=== PATIENT | male | born 1960 | race Caucasian/White ===

== ENCOUNTER 2016-12-03 07:48 | Day surgery (SDC) | payer BC ==
[~2016-12-03] VITALS: Ht 170.2 cm; Wt 88.9 kg
[~2016-12-03 07:48] MED LIST: LISI10TA7 PO; MELO-273 PO; MULT-933 PO; PROPOFOL 500mg 50 ML IV ONE
--- OUTSIDE RECORDS SUMMARY | 2016-12-03 07:52 | XMS REPORT | Continuity of Care Document ---
Author Author [facility] Organization [facility] Address Unknown Phone Unavailable Support Name Relationship Address Phone CHARLEE RODRIGUEZ MD Caregiver [address] [place] [address] DAY TSANG MD Caregiver [address] [place] [address] [place], [place] [phone] PIA HERNANDEZ Next Of Kin [address] [place] [address] Insurance Providers Payer Name Policy Number Subscriber Name Relationship [employer] [id number] Raheem Hernandez 16 Self Problems Medical Problems Problem Onset Date Status Laceration of lip without complication Unknown Active Laceration of lip without complication Unknown Active Medications Medication Dose Route Sig Days/Qty Instructions Order Date Discontinued Date Status [No Daily Medications] 04/14/14 Active Social History Social History Problem Response Recorded Date/Time Smoking Status Unknown if ever smoked 04/14/2014 10:53am Chewing Tobacco Status No 08/02/2013 6:05pm Hx Substance Use No 04/14/2014 10:53am Hx Alcohol Use No 04/14/2014 10:53am Has the pt used tobacco in the last 12 months No 08/02/2013 6:05pm Query Response Start Date Stop Date Smoking Status Never smoker Hospital Discharge Instructions No hospital discharge instructions. Plan of Care No plan of care. Functional Status Query Response Date Recorded Physical Hygiene Self April 14, 2014 10:53am Disabilities Visual April 14, 2014 10:53am Devices Used Glasses April 14, 2014 10:53am Dressing Self April 14, 2014 10:53am Ambulation Self April 14, 2014 10:53am Diet Self April 14, 2014 10:53am Mental Status Alert Oriented April 14, 2014 10:53am Disabilities Visual April 14, 2014 10:53am Devices Used Glasses April 14, 2014 10:53am Physical Hygiene Self April 14, 2014 10:53am Dressing Self April 14, 2014 10:53am Ambulation Self April 14, 2014 10:53am Diet Self April 14, 2014 10:53am Allergies, Adverse Reactions, Alerts Allergen Type Severity Reaction Status Last Updated Erythromycin base Adverse Reaction Unknown UPSET STOMACH Active 04/14/14 Immunizations Name Given Type Hx Influenza Vaccination Y FALL 2012 Historical Hx Pneumococcal Vaccination No Historical Hx Tetanus, Diptheria, Pertussis Y WITHIN LAST COUPLE OF MONTHS Historical Hx Influenza Vaccination Y FALL 2012 Historical Hx Tetanus, Diptheria, Pertussis Y WITHIN LAST COUPLE OF MONTHS Historical Vital Signs Acute Vital Signs Vital Response Date/Time Temperature (Fahrenheit) 96.6 deg F (96.8 - 99.1) Temperature (Calculated Celsius) 35.13135 degrees C (36.0 - 37.3) Pulse Rate (adult) 75 bpm (60 - 100) Respiratory Rate 16 breaths/min (10 - 20) O2 Sat by Pulse Oximetry 97 % (90 - 100) Blood Pressure 155/78 mm Hg Height 5 ft 7 in Weight 186 lb Body Mass Index 29.0 kg/m^2 Results No known relevant diagnostic tests, laboratory data and/or discharge summary. Procedures No known history of procedures. Encounters Encounter Location Date/Time Departed Emergency Room [facility] 04/14/14 10:35am Recent Diagnosis
[2016-12-03 07:58] VITALS: Ht 170.2 cm; Wt 88.9 kg
[2016-12-03 07:59] VITALS: BP 156/77; PULSE 63; RESP 15; TEMP 98.9; O2SAT 94
--- NOTE | 2016-12-03 08:42 | ANESPREOP ---
Anesthesia Record Date and Time DATE: 12/03/16 TIME: 08:39 Proposed Surgical Procedure EGD WITH DIL NPO since: 0 Allergies: Coded Allergies: NKDA (Verified Allergy, Unknown, 12/03/16) Ht/Wt/BMI Height: 5 ' 7.00 " Weight: 88.900 kg BMI: 30.7 kg/m2 Vital Signs Date Time Temp Pulse Resp B/P Pulse Ox O2 Delivery O2 Flow Rate FiO2 12/03/16 07:59 98.9 63 15 156/77 94 Room Air Medications Inpatient Medications Current Medications Medications (Trade) Dose Ordered Sig/Trisha Start Time Stop Time Status Last Admin Dose Admin Lactated Ringer's (Lactated Ringers) 1,000 ml @ 30 mls/hr Q24H 12/03/16 13:29 12/03/16 08:16 30 MLS/HR Lisinopril (Lisinopril) 10 Mg Tablet, 10 MG PO DAILY Last Taken: on 12/02/16 0530 Meloxicam (Meloxicam) 7.5 Mg Tablet, 1 TAB PO DAILY, (Reported) Last Taken: on 11/29/16 Multivitamin (Multi-Day Vitamins) 1 Each Tablet, 1 TAB PO DAILY, (Reported) Last Taken: on 12/02/16 0530 Currently on Beta Giacomo: No Medical/Surgical History Anesthesia PMH: Reports: *Hypertension, Hyperlipidemia, Obesity, Other ( Schatzki's righ), Sleep Apnea (DOES NOT WEAR A CPAP/SAYS ONLY WHEN LYING ON BACK ) Smoking Status: Never smoker Use Chewing Tobacco?: No Second Hand Exposure: No Substance Use Type: does not use Alcohol Intake: 0-2 drinks per day Past Surgical History Orthopedic Surgeries: Yes - R WRIST,L KNEE, L WRIST Abdominal Surgeries: Yes - SCHATZKI'S RING,INGUINAL HERNIA Genitourinary Surgeries: No Cardiac Surgeries: No Endocrine Surgeries: No Reproductive Surgeries: Yes - VASECTOMY Neurological Surgeries: No Ear Surgeries: No Nose Surgeries: No Throat Surgeries: No Other Surgeries: Yes - COLONOSCOPY ,EGD Anesthesia Adverse Reactions: FOUND none Family Hx of Anesthesia Advers: none Hx of Motion Sickness: No Physical Exam Respiratory: Bilat breath sounds equal, Lungs clear Cardiovascular: FOUND Regular rate, rhythm Airway Assessment Mallampati Score: III TMD: 2 Fingerbreadths Neck Extension: Fair Teeth: Chipped Teeth/Crowns (multiple front teeth, and missing teeth), Poor Dentation Overall Assessment: No Airway Concerns ASA: 3 Plan Anesthesia Plan: TIVA, GETA Discussion Discussed risks/options/alternatives of anesthesia and questions answered. Patient consents. Nursing pain assessment noted. Attestation Statement Prior to the delivery of any anesthetic medication, I examined the patient, developed the plan, obtained the patient's consent and discussed the risk and benefits of the procedure with the patient/guardian. DOMINIC ESPOSITO CONCESSION WORKER Dec 03, 2016 08:42
[2016-12-03] MEDS ORDERED: BENZOCAINE 20% Top. Anesth. SPRAY UD ONE (09:01)
[2016-12-03] MEDS ORDERED: LIDOCAINE VISCOUS 2% Oral Soln 15ml UD ONE (09:01)
[2016-12-03 09:35] VITALS: BP 99/57; PULSE 72; RESP 18; TEMP 97.5; O2SAT 98
[2016-12-03 09:50] VITALS: BP_SYST 102; BP_SYST 112; BP_DIAS 56; BP_DIAS 61; PULSE 60; RESP 17; O2SAT 98
[2016-12-03 10:05] VITALS: BP 110/61; PULSE 58; RESP 17; O2SAT 94
[2016-12-03 10:20] VITALS: BP 108/68; PULSE 65; RESP 22; O2SAT 97
--- NOTE | 2016-12-03 10:23 | ANESPO ---
Post-Op Note Date 12/03/16 Time: 10:20 Status Pt Participated in Evaluation: Pt participated in person Vital Signs Date Time Temp Pulse Resp B/P Pulse Ox O2 Delivery O2 Flow Rate FiO2 12/03/16 10:20 65 22 108/68 97 Room Air 12/03/16 09:35 97.5 2.00 Respiratory Function: Airway patent, Regular respirations Cardiovascular Function: Regular pulse Mental Status: Alert/oriented Pain Level Intensity: 0 Unable to Assess Pain Due To: Medicated/Sleeping Hydration: Taking po fluids Complications during Recovery None apparent Follow-Up Instructions Instructions Per Surgeon DOMINIC ESPOSITO CRNA Dec 03, 2016 10:23
[2016-12-03 10:28] VITALS: BP 135/77; PULSE 60; RESP 22; TEMP 97.3; O2SAT 96
[2016-12-03] MEDS ORDERED: LR 1,000 ML IV SCH (13:29)
[2016-12-03] MEDS ORDERED: LIDOCAINE 1% (10mg/ml) 2ml SDV INJ ONE (13:30)
--- NOTE | 2016-12-03 19:37 | OPNOTEF ---
DATE OF SERVICE 12/03/2016 SURGEON Jesus Alberto Irwin MD PREOPERATIVE DIAGNOSES Personal history for recurrent dysphagia, known history for distal esophageal stricture/Schatzki's ring. POSTOPERATIVE DIAGNOSES Personal history for recurrent dysphagia, known history for distal esophageal stricture/Schatzki's ring, endoscopic evidence for recurrent distal esophageal stricture. PROCEDURE Esophagogastroduodenoscopy with circumferential biopsies from distal esophagus, sequential balloon dilatation of distal esophagus to 54-Albanian. ANESTHESIA TIVA BRIEF HISTORY/INDICATIONS Mr. Sam is a 56-year-old gentleman who is well known to my surgical practice. I have performed a couple of esophageal dilatations upon the patient in the past as a result of his history for forming a distal esophageal stricture resulting in dysphagia. The patient has done well for quite some time since his last dilatation but recently has begun to develop recurrent dysphagia. As a result of the above indications it was recommended that he undergo repeat EGD with probable dilatation. For completeness please refer to notes included in the patient's chart. FINDINGS Upon upper endoscopy the patient did have endoscopic evidence for narrowing of the distal esophagus. There was somewhat of a web-like ring involving the distal esophagus indicative of a Schatzki's ring. There was also some slight irregularity of the squamocolumnar junction. Otherwise, the esophagus, stomach and duodenum were found to be within normal limits. DESCRIPTION OF PROCEDURE After informed consent was obtained the patient was brought to the endoscopy suite and placed upon the table in left lateral decubitus position. The patient subsequently underwent total intravenous anesthesia by the nurse bookkeeping service sales agent at my request. Formal time-out was then completed. Next, an Olympus gastroscope was inserted into the oral hypopharynx and subsequently into the esophagus under direct visualization. Gastroscope was advanced through the esophagus, stomach, pylorus, duodenal bulb, second portion of the duodenum. Scope was then slowly withdrawn. First and second portions of the duodenum were within normal limits. No evidence of duodenitis or ulcerations was noted. Scope was drawn back to the prepyloric region and antrum. Again, no marked mucosal abnormalities were noted. J-maneuver was then performed. Cardia and fundus were within normal limits. Endoscopically, there was no evidence for a hiatal hernia. Scope was allowed to straighten and was slowly withdrawn and the remaining corpus of the stomach was well visualized and again without noted abnormalities. Scope was drawn back to the level of the diaphragm. Squamocolumnar junction was located just above the level of the diaphragm and there was a component of narrowing of the distal esophagus as discussed above. Furthermore, there was some slight irregularity of the squamocolumnar junction. There was no endoscopic evidence for distal esophagitis. Mucosa was not significantly erythematous in nature nor was there evidence for ulcerations. Several circumferential biopsies were obtained from the distal esophagus via cold biopsy technique. Gastroscope was withdrawn back up into the cervical esophagus. No additional abnormalities were noted. Scope was then re-advanced back to the level of the diaphragm. As stated above, there was a component of narrowing of the distal esophagus and there was a web-like ring present indicative of a Schatzki's ring. Next, sequential balloon dilatation was performed up to 54-Albanian without incident. This did result in a small mucosal tear as the area was dilated. No evidence for perforation was noted. Balloon was then left inflated and withdrawn back up into the cervical esophagus and slowly deflated and withdrawn through the cricopharyngeal region. The patient tolerated the procedure without difficulty and was sent back to the preoperative area in stable condition. Will await biopsy results from today's EGD and proceed accordingly with further recommendations thereafter. [facility]
== END 2016-12-03 10:40 | disposition home or self-care (01) ==
LOC: SCU 07:48
PROVIDERS: ATTEND Surgery
DX: K22.70 Barrett's esophagus without dysplasia (principal); K21.0 Gastro-esophageal reflux disease with esophagitis; K22.2 Esophageal obstruction; R13.10 Dysphagia, unspecified; F32.9 Major depressive disorder, single episode, unspecified; E78.5 Hyperlipidemia, unspecified; G47.30 Sleep apnea, unspecified; Z79.1 Long term (current) use of non-steroidal anti-inflammatories (NSAID); Z79.899 Other long term (current) drug therapy
CPT/HCPCS: 43239; 43249; J2704; J7120